=== PATIENT | female | born 1965 | race African-American/Black ===

== ENCOUNTER 2022-03-05 10:23 | Emergency (ER) | payer OTHER ==
[~2022-03-05] VITALS: Ht 154.9 cm; Wt 77.5 kg
[2022-03-05] MEDS ORDERED: cloNIDine HCL 0.1 MG TAB PO ONE (10:45)
[2022-03-05 12:02] VITALS: BP 155/98
[2022-03-05] MEDS ORDERED: HYDR25TA5 PO (12:04)
[2022-03-05] MEDS ORDERED: AMLO-496 PO (12:04)
== END 2022-03-05 12:08 | disposition home or self-care (01) ==
LOC: ER 10:23
DX: I10 Essential (primary) hypertension (principal); Z88.0 Allergy status to penicillin; Z88.6 Allergy status to analgesic agent
CPT/HCPCS: 93005